=== PATIENT | female | born 1950 | race Caucasian/White ===

== ENCOUNTER → 2017-01-04 | Outpatient (CLI) | payer MEDICARE, OTHER | LOC: KOH-I 16:26 | DX: M54.5 Low back pain (principal); M47.816 Spondylosis without myelopathy or radiculopathy, lumbar region | CPT/HCPCS: 72110 ==

== ENCOUNTER → 2017-03-02 | Outpatient (CLI) | payer MEDICARE, OTHER | LOC: LAB 16:08 | DX: G45.9 Transient cerebral ischemic attack, unspecified (principal) | CPT/HCPCS: 36415; 82565; 84520 ==

== ENCOUNTER → 2017-03-03 | Outpatient (CLI) | payer MEDICARE, OTHER | LOC: KOH-I 08:46 | DX: G45.9 Transient cerebral ischemic attack, unspecified (principal); R90.89 Other abnormal findings on diagnostic imaging of central nervous system | CPT/HCPCS: 70553; A9577 ==

== ENCOUNTER → 2021-09-11 | Outpatient (CLI) | payer MEDICARE, OTHER ==
[~2021-09-11] MED LIST: CEFUROXIME500 MG PO; LOMOTIL 2.5-0.1 EACH PO; ZOFRAN4 MG PO
[2021-09-11 10:04] LABS: BORDETELLA PARAPERTUSSIS Not Detected (Not Detectd); BORDETELLA PERTUSSIS Not Detected (Not Detectd); CHLAMYDIA PNEUMONIAE Not Detected (Not Detectd); CORONAVIRUS HKU1 Not Detected (Not Detectd); CORONAVIRUS NL63 Not Detected (Not Detectd); CORONAVIRUS OC43 Not Detected (Not Detectd); CORONOAVIRUS 229E Not Detected (Not Detectd); HUMAN METAPNEUMOVIRUS Not Detected (Not Detectd); HUMAN RHINOVIRUS/ENTEROVIRUS Not Detected (Not Detectd); INFLUENZA A Not Detected (Not Detectd); INFLUENZA B Not Detected (Not Detectd); MYCOPLASMA PNEUMONIAE Not Detected (Not Detectd); PARAINFLUENZA VIRUS 1 Not Detected (Not Detectd); PARAINFLUENZA VIRUS 2 Not Detected (Not Detectd); PARAINFLUENZA VIRUS 3 Not Detected (Not Detectd); PARAINFLUENZA VIRUS 4 Not Detected (Not Detectd); RESPIRATORY SYNCYTIAL VIRUS Not Detected (Not Detectd)
[2021-09-11 12:02] LABS: SARS-CoV-2 NOT DETECTED (Not Detectd)
== END ==
LOC: LAB 09:29
PROVIDERS: Physician Assistant
DX: J06.9 Acute upper respiratory infection, unspecified (principal); Z20.822 Contact with and (suspected) exposure to COVID-19
CPT/HCPCS: 36415; 87633

== ENCOUNTER → 2021-09-23 | Outpatient (CLI) | payer MEDICARE, OTHER | LOC: KOH-I 13:08 | DX: M54.50 Low back pain, unspecified (principal); S32.018A Other fracture of first lumbar vertebra, initial encounter for closed fracture; M47.816 Spondylosis without myelopathy or radiculopathy, lumbar region | CPT/HCPCS: 72100 ==

== ENCOUNTER 2022-03-06 14:56 | Inpatient (IN) | payer MEDICARE, OTHER ==
[~2022-03-06] VITALS: Ht 172.7 cm; Wt 98.0 kg
[2022-03-06 16:04] LABS: HEMOGLOBIN 13.6 gm/dl (12.3-15.3); RED BLOOD COUNT 4.95 M/UL (4.00-5.10); WHITE BLOOD COUNT 12.1 K/UL (4.5-11.0)
[2022-03-06 16:27] LABS: BUN/CREATININE RATIO 20 (0-10)
[2022-03-07 03:35] LABS: HEMOGLOBIN 12.1 gm/dl (12.3-15.3); RED BLOOD COUNT 4.47 M/UL (4.00-5.10); WHITE BLOOD COUNT 9.6 K/UL (4.5-11.0)
[2022-03-07 03:51] LABS: BUN/CREATININE RATIO 20 (0-10)
[2022-03-07 05:59] LABS: BORDETELLA PARAPERTUSSIS Not Detected (Not Detectd); BORDETELLA PERTUSSIS Not Detected (Not Detectd); CHLAMYDIA PNEUMONIAE Not Detected (Not Detectd); CORONAVIRUS HKU1 Not Detected (Not Detectd); CORONAVIRUS NL63 Not Detected (Not Detectd); CORONAVIRUS OC43 Not Detected (Not Detectd); CORONOAVIRUS 229E Not Detected (Not Detectd); HUMAN METAPNEUMOVIRUS Not Detected (Not Detectd); HUMAN RHINOVIRUS/ENTEROVIRUS Not Detected (Not Detectd); INFLUENZA A Not Detected (Not Detectd); INFLUENZA B Not Detected (Not Detectd); MYCOPLASMA PNEUMONIAE Not Detected (Not Detectd); PARAINFLUENZA VIRUS 1 Not Detected (Not Detectd); PARAINFLUENZA VIRUS 2 Not Detected (Not Detectd); PARAINFLUENZA VIRUS 3 Not Detected (Not Detectd); PARAINFLUENZA VIRUS 4 Not Detected (Not Detectd); RESPIRATORY SYNCYTIAL VIRUS Not Detected (Not Detectd)
[2022-03-07 07:15] LABS: SARS-CoV-2 NOT DETECTED (Not Detectd)
[2022-03-07] MEDS ORDERED: ALPRAZOLAM1 MG PO ×2 (09:58)
[2022-03-07] MEDS ORDERED: NEURONTIN400 MG PO ×2 (09:59)
[2022-03-07] MEDS ORDERED: HYDROCODON-ACE1 EAC6 PO (10:00)
[2022-03-07] MEDS ORDERED: CYCLOBENZAPRINE10 MG PO (10:00)
[2022-03-07] MEDS ORDERED: GALANTAMINE HBR16 MG PO (10:00)
[2022-03-07] MEDS ORDERED: LOSARTAN POTASS50 MG PO (10:01)
[2022-03-07] MEDS ORDERED: JANUVIA100 MG PO (10:01)
[2022-03-07] MEDS ORDERED: MONTELUKAST SOD10 MG PO (10:01)
[2022-03-07] MEDS ORDERED: FLECAINIDE ACET50 MG PO (10:01)
[2022-03-07] MEDS ORDERED: ESOMEPRAZOLE MA40 MG PO (10:01)
[2022-03-07] MEDS ORDERED: MAGNESIUM OXID400 M1 PO (10:02)
[2022-03-07] MEDS ORDERED: XARELTO20 MG PO (10:02)
[2022-03-07] MEDS ORDERED: PROAIR HFA8.5 GM INH (10:02)
[2022-03-07] MEDS ORDERED: JARDIANCE25 MG PO (10:02)
[2022-03-07] MEDS ORDERED: ZOCOR20 MG PO (10:03)
[2022-03-07] MEDS ORDERED: ATENOLOL50 MG PO (10:03)
[2022-03-07] MEDS ORDERED: DOXEPIN HCL50 MG PO (10:03)
[2022-03-07] MEDS ORDERED: TYLENOL EXTRA500 MG PO (10:03)
[2022-03-07] MEDS ORDERED: CLARITIN10 MG PO (10:04)
[2022-03-07] MEDS ORDERED: VITAMIN B-12100 MCG PO (10:04)
[2022-03-07] MEDS ORDERED: VITAMIN D3125 MC1 PO (10:04)
[2022-03-07] MEDS ORDERED: ZOLOFT100 MG PO (10:04)
[2022-03-07] MEDS ORDERED: ASPIRIN EC81 MG PO (10:05)
[2022-03-08 07:49] LABS: HEMOGLOBIN 12.3 gm/dl (12.3-15.3); RED BLOOD COUNT 4.7 M/UL (4.00-5.10); WHITE BLOOD COUNT 7.4 K/UL (4.5-11.0)
[2022-03-08 14:24] LABS: BUN/CREATININE RATIO 20 (0-10)
[2022-03-09 03:03] LABS: HEMOGLOBIN 12.3 gm/dl (12.3-15.3); RED BLOOD COUNT 4.56 M/UL (4.00-5.10); WHITE BLOOD COUNT 8.6 K/UL (4.5-11.0)
[2022-03-09 03:25] LABS: BUN/CREATININE RATIO 20 (0-10)
--- NOTE | 2022-03-09 17:28 | NUR ---
CLEARED BY FOR PT TO [facility]E [facility] FOR MRI AT 1630
[2022-03-10 06:47] LABS: RED BLOOD COUNT 4.48 M/UL (4.00-5.10); WHITE BLOOD COUNT 7.2 K/UL (4.5-11.0)
[2022-03-10 07:13] LABS: BUN/CREATININE RATIO 22 (0-10)
[2022-03-10] MEDS ORDERED: AZITHROMYCIN500 MG PO (09:44)
[2022-03-10] MEDS ORDERED: CEFDINIR300 MG PO (09:44)
[2022-03-11 16:14] LABS: ORGANISM ID Not indicated. (.); SPECIMEN SOURCE Urine (.); STREPTOCOCCUS PNEUMONIAE AG Negative (Negative)
== END 2022-03-10 10:45 | disposition home or self-care (01) | DRG 193 ==
LOC: ER1 14:56 → CDU 18:55 → M/S 18:55
PROVIDERS: Emergency Medicine; Internal Medicine; ADMIT Internal Medicine
DX: J18.9 Pneumonia, unspecified organism (principal); J96.01 Acute respiratory failure with hypoxia; G93.41 Metabolic encephalopathy; Z20.822 Contact with and (suspected) exposure to COVID-19; R44.3 Hallucinations, unspecified; N39.0 Urinary tract infection, site not specified; E87.2 Acidosis; E86.0 Dehydration; F03.90 Unspecified dementia, unspecified severity, without behavioral disturbance, psychotic disturbance, mood disturbance, and anxiety; F41.9 Anxiety disorder, unspecified; I48.0 Paroxysmal atrial fibrillation; F32.A Depression, unspecified; E11.9 Type 2 diabetes mellitus without complications; G40.909 Epilepsy, unspecified, not intractable, without status epilepticus; E55.9 Vitamin D deficiency, unspecified; Z79.01 Long term (current) use of anticoagulants; Z79.82 Long term (current) use of aspirin; E78.5 Hyperlipidemia, unspecified; Z90.710 Acquired absence of both cervix and uterus; Z98.42 Cataract extraction status, left eye; Z98.41 Cataract extraction status, right eye; Z88.0 Allergy status to penicillin; Z88.8 Allergy status to other drugs, medicaments and biological substances; Z82.49 Family history of ischemic heart disease and other diseases of the circulatory system; Z80.9 Family history of malignant neoplasm, unspecified; Z83.3 Family history of diabetes mellitus; Z98.51 Tubal ligation status
CPT/HCPCS: 0241U; 36415; 36600; 70450; 70551; 71045; 80048; 80053; 80307; 81001; 82550; 82553; 82607; 82803; 82962; 83605; 83690; 83735; 84132; 84439; 84443; 84484; 85025; 85027; 86140; 87040; 87070; 87086; 87205; 87278; 87633; 87899; 93005; 96361; 96365; 96375; 97161; 99285; G0480; J0692; J0696; Q9967

== ENCOUNTER → 2022-03-30 | Outpatient (CLI) | payer MEDICARE, OTHER ==
[~2022-03-30] MED LIST changes: +ALPRAZOLAM1 MG PO; +ASPIRIN EC81 MG PO; +ATENOLOL50 MG PO; +AZITHROMYCIN500 MG PO; +CEFDINIR300 MG PO; +CLARITIN10 MG PO; +CYCLOBENZAPRINE10 MG PO; +DOXEPIN HCL50 MG PO; +ESOMEPRAZOLE MA40 MG PO; +FLECAINIDE ACET50 MG PO; +GALANTAMINE HBR16 MG PO; +HYDROCODON-ACE1 EAC6 PO; +JANUVIA100 MG PO; +JARDIANCE25 MG PO; +LOSARTAN POTASS50 MG PO; +MAGNESIUM OXID400 M1 PO; +MONTELUKAST SOD10 MG PO; +NEURONTIN400 MG PO; +PROAIR HFA8.5 GM INH; +TYLENOL EXTRA500 MG PO; +VITAMIN B-12100 MCG PO; +VITAMIN D3125 MC1 PO; +XARELTO20 MG PO; +ZOCOR20 MG PO; +ZOLOFT100 MG PO
== END ==
LOC: KOH-I 12:08
DX: J18.9 Pneumonia, unspecified organism (principal)
CPT/HCPCS: 71046

== ENCOUNTER 2022-06-01 17:25 | Emergency (ER) | payer MEDICARE, OTHER ==
[2022-06-01 18:50] LABS: BORDETELLA PARAPERTUSSIS Not Detected (Not Detectd); BORDETELLA PERTUSSIS Not Detected (Not Detectd); CHLAMYDIA PNEUMONIAE Not Detected (Not Detectd); CORONAVIRUS HKU1 Not Detected (Not Detectd); CORONAVIRUS NL63 Not Detected (Not Detectd); CORONAVIRUS OC43 Not Detected (Not Detectd); CORONOAVIRUS 229E Not Detected (Not Detectd); HUMAN METAPNEUMOVIRUS Not Detected (Not Detectd); HUMAN RHINOVIRUS/ENTEROVIRUS Not Detected (Not Detectd); INFLUENZA A Not Detected (Not Detectd); INFLUENZA B Not Detected (Not Detectd); MYCOPLASMA PNEUMONIAE Not Detected (Not Detectd); PARAINFLUENZA VIRUS 1 Not Detected (Not Detectd); PARAINFLUENZA VIRUS 2 Not Detected (Not Detectd); PARAINFLUENZA VIRUS 3 Not Detected (Not Detectd); PARAINFLUENZA VIRUS 4 Not Detected (Not Detectd); RESPIRATORY SYNCYTIAL VIRUS Not Detected (Not Detectd)
[2022-06-01 18:53] LABS: HEMOGLOBIN 12.5 gm/dl (12.3-15.3); RED BLOOD COUNT 4.92 M/UL (4.00-5.10); WHITE BLOOD COUNT 9.6 K/UL (4.5-11.0)
[2022-06-01 19:15] LABS: BUN/CREATININE RATIO 18 (0-10)
[2022-06-01 19:52] LABS: SARS-CoV-2 NOT DETECTED (Not Detectd)
[2022-06-02 02:24] LABS: BUN/CREATININE RATIO 19 (0-10)
[2022-06-02] MEDS ORDERED: OMNICEF 300 MG300 MG PO (02:28)
== END 2022-06-02 02:45 | disposition home or self-care (01) ==
LOC: ER1 17:25
PROVIDERS: Emergency Medicine; Physician Assistant Medical
DX: N39.0 Urinary tract infection, site not specified (principal); R05.9 Cough, unspecified; Z20.822 Contact with and (suspected) exposure to COVID-19; I48.91 Unspecified atrial fibrillation; E11.9 Type 2 diabetes mellitus without complications; Z79.01 Long term (current) use of anticoagulants; Z88.0 Allergy status to penicillin; Z88.1 Allergy status to other antibiotic agents; Z88.8 Allergy status to other drugs, medicaments and biological substances
CPT/HCPCS: 71045; 80048; 80053; 81001; 82550; 82553; 83605; 84484; 85025; 87633; 96374; 99285; J0696; J7030